=== PATIENT | male | born 1995 | race American Indian/Alaskan Native ===

== ENCOUNTER 2021-07-12 10:24 | Emergency (ER) | payer SELFPAY ==
[2021-07-12 11:31] VITALS: BP 145/74
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
== END 2021-07-12 13:31 | disposition home or self-care (01) ==
LOC: ED 10:24
DX: M25.561 Pain in right knee (principal)
CPT/HCPCS: 99281

== ENCOUNTER 2021-12-01 23:39 | Emergency (ER) | payer SELFPAY ==
[2021-12-02 02:50] VITALS: BP 125/60
[2021-12-02] MEDS ORDERED: oxyCODONE /ACETAMINOPHEN 5-325MG TAB PO ONE (04:19)
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
== END 2021-12-02 05:07 | disposition home or self-care (01) ==
LOC: ED 23:39
DX: M79.604 Pain in right leg (principal); F17.200 Nicotine dependence, unspecified, uncomplicated
CPT/HCPCS: 99283